=== PATIENT | male | born 1985 | race Two or more races ===

== ENCOUNTER 2018-03-21 00:27 | Emergency (ER) | payer SELFPAY ==
[~2018-03-21] VITALS: Ht 165.1 cm; Wt 81.6 kg
[2018-03-21] MEDS: DIPHTH,PERTUSS(ACELL),TET TOX 0.5 ML DISP.SYRIN. VAX IM ONE (01:50)
[2018-03-21] MEDS: LIDOCAINE 1%/EPI 1:100,000 20 ML VIAL. INJ ONE (01:50)
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
[2018-03-21 03:14] VITALS: BP 106/55
[2018-03-21] MEDS: NEOMY/BACITR/POLYMYXIN OINT PACKET. TP ONE (03:15)
== END 2018-03-21 03:31 | disposition home or self-care (01) ==
LOC: ER 00:27
DX: S01.01XA Laceration without foreign body of scalp, initial encounter (principal); Y08.89XA Assault by other specified means, initial encounter; Y93.89 Activity, other specified; Y92.89 Other specified places as the place of occurrence of the external cause; Y99.8 Other external cause status
CPT/HCPCS: 70450; 72125; 90471; 90715; 96372; 99284; J3490